=== PATIENT | male | born 1950 | race Caucasian/White ===

== ENCOUNTER 2022-12-07 15:10 | Inpatient (IN) | payer OTHER ==
[~2022-12-07] VITALS: Ht 167.6 cm; Wt 88.7 kg
[2022-12-07] MEDS ORDERED: SODIUM CHLORIDE 0.9% 1,000 ML IV ONE (15:30)
[2022-12-07 16:17] LABS: BASOPHILS % 0.3 % (0.0-2.0); EOSINOPHILS % 0.1 % (0.0-5.0); HEMATOCRIT. 39.4 % (42.0-52.0); HEMOGLOBIN. 12.9 g/dL (14.0-18.0); LYMPHOCYTES % 15.2 % (20.0-50.0); MEAN CORPUSCULAR HEMOGLOBIN 28.9 pg (28.0-32.0); MEAN CORPUSCULAR HGB CONC 32.7 g/dL (31.0-37.0); MEAN CORPUSCULAR VOLUME 88.4 fL (80.0-94.0); MEAN PLATELET VOLUME 8.4 fl (7.4-10.4); MONOCYTES % 14.2 % (2.0-8.0); NEUTROPHILS % 70.2 % (40.0-76.0); PLATELET 151 x1000/uL (130-400); RED BLOOD CELL COUNT 4.45 mill/uL (4.7-6.1); RED CELL DISTRIBUTION WIDTH 15.7 % (11.6-14.6); WHITE BLOOD COUNT 4.7 x1000/uL (4.5-11.0)
[2022-12-07 16:26] LABS: CHLORIDE 108 mEq/L (98-107); INDEX HEMOLYSI 1 (1-3); INDEX ICTERIC 1 (1-4); INDEX LIPEMIC 1 (1-3); POTASSIUM 4.9 mEq/L (3.5-5.1); PROTHROMBIN TIME 11.2 sec (9.6-11.0); SODIUM 136 mEq/L (136-145)
[2022-12-07 16:38] LABS: ALANINE AMINOTRANSFERASE 57 IU/L (13-61); ALBUMIN 3.7 g/dL (3.4-5.0); ASPARTATE AMINOTRANSFERASE 53 IU/L (15-37); BILIRUBIN TOTAL 0.6 mg/dL (0.1-1.0); CALCIUM 8.2 mg/dL (8.5-10.1); CARBON DIOXIDE 25 mEq/L (21-32); CREATININE 1.4 mg/dL (0.6-1.3); ETHANOL BLOOD < 10 mg/dL (<10); GLUCOSE 139 mg/dL (70-105); PROTEIN TOTAL 7.4 g/dL (6.0-8.3); TROPONIN I HIGH SENSITIVITY 10 ng/L (<78); UREA NITROGEN BLOOD 22 mg/dL (7-21)
[2022-12-07 19:52] LABS: CLARITY URINE CLEAR (CLEAR); COLOR URINE YELLOW (YELLOW); GLUCOSE URINE NEGATIVE (NEGATIVE); KETONES URINE TRACE (NEGATIVE); LEUKOCYTE ESTERASE URINE NEGATIVE (NEGATIVE); NITRITE URINE NEGATIVE (NEGATIVE); OCCULT BLOOD URINE 1+ (NEGATIVE); PROTEIN URINE 2+ (NEGATIVE)
[2022-12-07 19:55] LABS: YEAST URINE NONE SEEN
[2022-12-07 20:14] LABS: TROPONIN I HIGH SENSITIVITY 12 ng/L (<78)
[2022-12-07 20:32] LABS: BACTERIA URINE 1+; SQUAMOUS EPITHELIAL CELL URINE FEW /lpf (RARE/1+); WBC URINE 0-2 /hpf (0-2)
[2022-12-07] MEDS ORDERED: IOHEXOL-300 50 ML BOTTLE IV ONE (22:54)
[2022-12-08] VITALS: BP_SYST 143; BP_SYST 149; BP_DIAS 79; BP_DIAS 80; PULSE 82; PULSE 83; RESP 18; RESP 20; TEMP 98.1; TEMP 99.1
[2022-12-08] MEDS ORDERED: DEXTROSE 50% WATER 50ML SYRINGE IV PRN (01:15)
[2022-12-08 04:00] VITALS: BP 121/74; PULSE 86; RESP 17; TEMP 99
[2022-12-08] MEDS: BLOOD SUGAR DIAGNOSTIC STRIP TEST SCH ×2 (06:16→12:30)
[2022-12-08 06:50] LABS: BASOPHILS % 0.2 % (0.0-2.0); HEMATOCRIT. 37.3 % (42.0-52.0); HEMOGLOBIN. 12.4 g/dL (14.0-18.0); LYMPHOCYTES % 24.7 % (20.0-50.0); MEAN CORPUSCULAR HEMOGLOBIN 28.9 pg (28.0-32.0); MEAN CORPUSCULAR HGB CONC 33.1 g/dL (31.0-37.0); MEAN CORPUSCULAR VOLUME 87.2 fL (80.0-94.0); MEAN PLATELET VOLUME 9.2 fl (7.4-10.4); MONOCYTES % 10.3 % (2.0-8.0); NEUTROPHILS % 64.8 % (40.0-76.0); PLATELET 145 x1000/uL (130-400); RED BLOOD CELL COUNT 4.28 mill/uL (4.7-6.1); RED CELL DISTRIBUTION WIDTH 15.4 % (11.6-14.6); WHITE BLOOD COUNT 5.4 x1000/uL (4.5-11.0)
[2022-12-08 07:02] LABS: POTASSIUM 4.1 mEq/L (3.5-5.1)
[2022-12-08 07:11] LABS: CALCIUM 7.7 mg/dL (8.5-10.1); CREATININE 1.3 mg/dL (0.6-1.3)
[2022-12-08] MEDS: INSULIN LISPRO 100 UNITS/ML SUBCUT SCH ×2 (07:40→12:40)
[2022-12-08 08:29] LABS: HEPATITIS B SURFACE ANTIGEN NEGATIVE
[2022-12-08 08:57] LABS: HEPATITIS C VIR.AB 0.16 INDEXVAL (0.00-0.80)
[2022-12-08] MEDS: CLOPIDOGREL 75MG TABLET PO SCH (09:11)
[2022-12-08] MEDS: METFORMIN HCL 500MG TABLET PO SCH ×2 (09:11→19:52)
[2022-12-08 12:00] VITALS: BP 130/76; PULSE 79; RESP 20; TEMP 97.5
[2022-12-08 16:00] VITALS: BP 120/74; PULSE 66; RESP 20; TEMP 97.9
[2022-12-08 20:00] VITALS: BP 132/80; PULSE 75; RESP 19; TEMP 97.4
[2022-12-08] MEDS ORDERED: ATORVASTATIN CALCIUM 40MG TABLET PO SCH (21:00)
[2022-12-09] VITALS: BP 116/76; PULSE 69; RESP 20; TEMP 97.5
[2022-12-09 04:00] VITALS: BP 97/55; PULSE 74; RESP 20; TEMP 98.4
[2022-12-09 08:00] VITALS: BP 115/60; PULSE 72; RESP 20; TEMP 98.1
[2022-12-09] MEDS: METFORMIN HCL 500MG TABLET PO SCH (08:43)
[2022-12-09] MEDS: CLOPIDOGREL 75MG TABLET PO SCH (08:43)
[2022-12-09 10:50] VITALS: BP 115/60; PULSE 72; TEMP 98.1; O2SAT 99
== END 2022-12-09 11:33 | disposition home or self-care (01) | DRG 871 ==
LOC: ER 16:12 → MICUSO 21:07 → EDBEDREQ 21:32 → EDBEDREQTM 21:32 → 8WST 23:33
PROVIDERS: ADMIT Internal Medicine; ATTEND Internal Medicine
DX: A41.9 Sepsis, unspecified organism (principal); N17.0 Acute kidney failure with tubular necrosis; U07.1 COVID-19; G90.8 Other disorders of autonomic nervous system; E11.9 Type 2 diabetes mellitus without complications; E66.9 Obesity, unspecified; I10 Essential (primary) hypertension; I25.10 Atherosclerotic heart disease of native coronary artery without angina pectoris; I25.2 Old myocardial infarction; Z79.82 Long term (current) use of aspirin; Z95.5 Presence of coronary angioplasty implant and graft; Z68.31 Body mass index [BMI] 31.0-31.9, adult
CPT/HCPCS: 36415; 71275; 80048; 80053; 80061; 80320; 81003; 82962; 83036; 83605; 83880; 84484; 85025; 86803; 86850; 86900; 87340; 87426; 93005; 99285; J7030; Q9967; G0480